=== PATIENT | female | born 1995 | race Caucasian/White ===

== ENCOUNTER 2017-03-18 21:29 | Emergency (ER) | payer SELFPAY ==
[2017-03-18 22:04] LABS: APPEARANCE HAZY (CLEAR); BILIRUBIN NEGATIVE (NEGATIVE); COLOR AMBER (YELLOW); GLUCOSE NEGATIVE (NEGATIVE); KETONE NEGATIVE (NEGATIVE); NITRITE NEGATIVE (NEGATIVE); PROTEIN TRACE mg/dL (NEGATIVE); UROBILINOGEN NORMAL (NORMAL)
[2017-03-18 22:11] LABS: BACTERIA MODERATE /hpf (NONE SEEN); RED CELLS - URINE >50 /hpf (0-5)
== END 2017-03-18 22:43 | disposition home or self-care (01) ==
LOC: D.ER 21:29
PROVIDERS: Emergency Medicine
DX: N39.0 Urinary tract infection, site not specified (principal); F17.200 Nicotine dependence, unspecified, uncomplicated

== ENCOUNTER 2017-12-10 01:00 | Emergency (ER) | payer SELFPAY ==
[~2017-12-10] VITALS: Ht 152.4 cm; Wt 61.4 kg
[2017-12-10 01:05] VITALS: Ht 152.4 cm; Wt 61.4 kg
[2017-12-10] MEDS ORDERED: ZOLOFT25 MG PO (01:05)
[2017-12-10 01:34] LABS: BASOPHILS 0.4 % (0-2); HEMATOCRIT 38.7 % (36.0-48.0); HEMOGLOBIN 13.6 g/dL (12-16); IMMATURE GRANULOCYTES 0.1 % (0-5); LYMPHOCYTES 47.6 % (15-50); MCH 31.3 pg (26.0-34.0); MCHC 35.1 g/dL (31.0-37.0); MEAN PLATELET VOLUME 10.7 fL (7.4-10.4); MONOCYTES 8.9 % (2-11); PLATELET COUNT 289 10x3/uL (130-400); RBC 4.35 10x6/uL (4.00-5.40); RDW 12.9 % (11.5-14.5)
[2017-12-10 01:42] LABS: HCG SERUM NEGATIVE (NEGATIVE)
[2017-12-10 01:49] LABS: ALBUMIN 3.8 g/dL (3.4-5.0); ALKALINE PHOSPHATASE 50 U/L (46-116); ALT (SGPT) 30 U/L (10-68); BILIRUBIN - TOTAL 0.34 mg/dL (0.2-1.3); CALC OSMOLALITY 280 mosm/kg (275-300); CALCIUM 8.6 mg/dL (8.5-10.1); CARBON DIOXIDE 24.6 mmol/L (21.0-32.0); CHLORIDE - SERUM 103 mmol/L (98-107); CREATININE - SERUM 0.9 mg/dL (0.6-1.3); GLUCOSE 114 mg/dL (74-106); POTASSIUM - SERUM 3.2 mmol/L (3.5-5.1); PROTEIN - SERUM 7.8 g/dL (6.4-8.2); SODIUM 140 mmol/L (136-145); UREA NITROGEN 14 mg/dL (7-18); eGFR NON AFRICAN AMERICAN 84 mL/min (90-120)
[2017-12-10 02:31] LABS: APPEARANCE HAZY (CLEAR); BILIRUBIN NEGATIVE (NEGATIVE); COLOR YELLOW (YELLOW); GLUCOSE NEGATIVE (NEGATIVE); KETONE SMALL mg/dL (NEGATIVE); NITRITE NEGATIVE (NEGATIVE); PROTEIN TRACE mg/dL (NEGATIVE)
[2017-12-10 02:32] LABS: BACTERIA NONE SEEN /hpf (NONE SEEN); EPITHELIAL CELLS 0-5 /hpf (0-5); RED CELLS - URINE >50 /hpf (0-5); WHITE CELLS - URINE NSEEN /hpf (0-5)
[2017-12-10 02:35] LABS: UDS - AMPHET NEGATIVE QUAL (NEGATIVE); UDS - BARB NEGATIVE QUAL (NEGATIVE); UDS - BENZO NEGATIVE QUAL (NEGATIVE); UDS - COCAINE NEGATIVE QUAL (NEGATIVE); UDS - OPIATE NEGATIVE QUAL (NEGATIVE); UDS - PCP NEGATIVE QUAL (NEGATIVE); UDS - THC NEGATIVE QUAL (NEGATIVE)
[2017-12-10] MEDS ORDERED: ATIVAN0.5 MG PO (02:50)
[2017-12-10 03:23] VITALS: BP 123/78
== END 2017-12-10 03:24 | disposition home or self-care (01) ==
LOC: D.ER 01:00
PROVIDERS: Family Medicine
DX: F41.0 Panic disorder [episodic paroxysmal anxiety] (principal); R42 Dizziness and giddiness; F17.200 Nicotine dependence, unspecified, uncomplicated

== ENCOUNTER 2018-05-12 08:54 | Emergency (ER) | payer MEDICAID ==
[~2018-05-12] VITALS: Ht 152.4 cm; Wt 65.9 kg
[~2018-05-12 08:54] MED LIST: ATIVAN0.5 MG PO; ZOLOFT25 MG PO
[2018-05-12 08:57] VITALS: Ht 152.4 cm; Wt 65.9 kg
[2018-05-12] MEDS ORDERED: AUGMENTIN 875-11 TAB PO (09:31)
[2018-05-12 09:40] VITALS: BP 128/72
== END 2018-05-12 09:41 | disposition home or self-care (01) ==
LOC: D.ER 08:54
DX: J01.90 Acute sinusitis, unspecified (principal); H92.01 Otalgia, right ear

== ENCOUNTER 2018-09-20 04:13 | Emergency (ER) | payer OTHER ==
[~2018-09-20] VITALS: Ht 152.4 cm; Wt 70.5 kg
[~2018-09-20 04:13] MED LIST changes: +AUGMENTIN 875-11 TAB PO
[2018-09-20 04:17] VITALS: Ht 152.4 cm; Wt 70.5 kg
[2018-09-20] MEDS ORDERED: MECLIZINE HCL25 MG PO (05:52)
[2018-09-20 06:04] VITALS: BP 100/61
== END 2018-09-20 06:03 | disposition home or self-care (01) ==
LOC: D.ER 04:13
DX: R42 Dizziness and giddiness (principal)